=== PATIENT | male | born 1985 | race Caucasian/White ===

== ENCOUNTER 2016-12-16 20:42 | Emergency (ER) | payer OTHER ==
[~2016-12-16] VITALS: Ht 180.3 cm; Wt 81.8 kg
[2016-12-16 20:45] VITALS: BP 163/100; PULSE 92; RESP 12; O2SAT 100
[2016-12-16 21:03] VITALS: BP 168/106; PULSE 88; RESP 11; O2SAT 100
[2016-12-16 21:04] LABS: BASOPHILS % (AUTO) 0 % (0-3); EOSINOPHILS % (AUTO) 18 % (0-5); MONOCYTES % (AUTO) 6 % (4-12); Mean Corpuscular Hemoglobin 31.2 pg (27.0-35.0); Mean Corpuscular Volume 88.8 fL (81-100); NEUTROPHILS % (AUTO) 28 % (40-74); Platelet Count 180 bil/L (150-400)
--- NOTE | 2016-12-16 21:21 | DRSVH ---
PROCEDURE: X-RAY CHEST ONE VIEW, PORTABLE ([id number]) INDICATIONS: 31 year-old male with dizziness. TECHNIQUE: One view of the chest was acquired. COMPARISON: None. FINDINGS: Surgical changes and devices: None. Lungs and pleura: No pleural effusions or pneumothorax. Lungs are clear. Mediastinum: Mediastinal contours appear normal. Heart size is normal. Bones and chest wall: No suspicious bony lesions. Overlying soft tissues appear unremarkable. IMPRESSION: No acute cardiopulmonary disease. Dictated by: Kumar Moran M.D. on 12/16/2016 at 21:19 Approved by: Kumar Moran M.D. on 12/16/2016 at 21:20
--- NOTE | 2016-12-16 21:22 | ED.REPORT ---
HPI-General Illness Date of Service December 16, 2016 ED Provider: Randell Kumar MD 31 year old male with no significant past medical history who presents to the ER due to a sudden onset of SOB, dizziness and substernal chest pain about 30 minutes ago. He also complains of 4 days of epigastric abd cramping which seems to be associated with eating. His abd pain is resolved now. Associated symptoms include shaking, yellow diarrhea (today), burping (with acid taste in mouth), R arm tingling, chills, headache and nausea. Pt denies vomiting, fever, bloody stools. Nursing Notes Stated Complaint: SHORT OF BREATH, DIZZY Chief Complaint: General Complaint Nursing Notes Reviewed: Yes Allergies: Coded Allergies: Penicillins (Verified Allergy, Severe, 12/16/16) cephalexin (Verified Allergy, Severe, 12/16/16) Scheduled PRN Polyethylene Glycol 3350 (Miralax) 17 Gm Powd.pack 17 GM PO HS PRN PRN For Constipation General Time Seen by MD: 21:16 Chief Complaint Breathing problem Hx Obtained From: Patient Arrived By: Walk-in Sudden in Onset?: Yes Onset Occurred: 16 - 30 minutes ago Symptom Duration: Since onset Location: : Chest Severity: Current: Mild Associated with: Reports: Headache, Nausea, Shortness of breath, Denies: Fever, Vomiting Past Medical History Past Medical History Gout Past Surgical History None reported Smoking History Never Smoker Social History Alcohol Use: "Social" Drug Use: Denies drug use Other Social History: Good social support Ambulatory Status Independent Review of Systems Full Review of Systems Constitutional: Reports: Chills, Denies: Fever Respiratory: Reports: Shortness of breath Cardiovascular: Reports: Chest pain GI: Reports: Abdominal pain, Diarrhea, Nausea, Denies: Bloody/tarry stool, Vomiting Neurologic: Reports: Dizziness, Headache, Lightheaded, Shaking Complete sys rev & neg: except as marked. Physical Exam PERC rule negative. Vital Signs Vital Signs Date Time Temp Pulse Resp B/P Pulse Ox O2 Delivery O2 Flow Rate FiO2 12/17/16 00:08 70 14 129/86 99 Room Air 12/16/16 21:46 78 13 142/80 100 Room Air 12/16/16 21:03 88 11 168/106 100 Room Air 12/16/16 20:45 36.5 92 12 163/100 100 Room Air Initial VS: Reviewed General/Constitutional: Well-developed, Well-nourished Head / Eyes: Atraumatic, Normocephalic, PERRL ENT: Conjunctiva normal, No scleral icterus Neck: Full range of motion Respiratory: Breath sounds normal, Clear to auscultation, No respiratory distress Cardiovascular: Regular rate & rhythm, Heart sounds normal (No murmurs), Intact distal pulses Abdomen / GI: Soft, Non-tender, No guarding, No rebound, No distention Back: No CVA tenderness Extremities: Vascular intact, Neuro intact, No swelling, No tenderness Skin: Warm, Dry, No cyanosis Neurologic: Alert, Oriented, Nonfocal Psychiatric: Cognitive function NL, Thought content NL Abnormal Mood/Affect: Positive: Anxious Interpretation & Diagnostics Lab Results Interpretation Result Diagram: 12/16/16204912/16/162049 Test 12/16/16 20:50 White Blood Count 12.7th/mm3 (3.8-10.1) Red Blood Count 5.00mil/mm3 (4.40-5.80) Hemoglobin 15.6g/dL (13.8-17.2) Hematocrit 44.4% (41.0-50.0) Mean Corpuscular Volume 88.8fL (81-100) Mean Corpuscular Hemoglobin 31.2pg (27.0-35.0) Mean Corpuscular Hemoglobin Concent 35.1% (32.0-37.0) Red Cell Distribution Width 12.1% (12.3-15.4) Platelet Count 180bil/L (150-400) Neutrophils (%) (Auto) 28% (40-74) Lymphocytes (%) (Auto) 48% (14-46) Monocytes (%) (Auto) 6% (4-12) Eosinophils (%) (Auto) 18% (0-5) Basophils (%) (Auto) 0% (0-3) Sodium Level 141mEq/L (134-144) Potassium Level 3.1mEq/L (3.5-5.2) Chloride Level 99mEq/L (97-108) Carbon Dioxide Level 23mmol/L (18-29) Blood Urea Nitrogen 10mg/dL (6-20) Creatinine 0.94mg/dL (0.76-1.27) Estimat Glomerular Filtration Rate 100mL/min (>59) Glucose Level 115mg/dL (60-99) Calcium Level 10.1mg/dL (8.5-10.1) Magnesium Level 1.7mg/dL (1.6-2.6) Total Bilirubin 0.5mg/dL (0.0-1.2) Aspartate Amino Transf (AST/SGOT) 23U/L (0-50) Alanine Aminotransferase (ALT/SGPT) 22U/L (0-44) Alkaline Phosphatase 72U/L (25-150) Troponin T 0.010ug/L (0.0-0.011) Total Protein 7.8g/dL (6.4-8.4) Albumin 4.6g/dL (3.4-5.0) Lipase 29U/L (13-60) Hold Dow Top Tube Received (Received) Lab Results Interpretation: US Appendix: Noncompressible bowel loop or phlegmonous mass measures 2 x2 x 5 cm, and is of uncertain etiology. The appendix is not definitely seen, though acute appendicitis is not excluded on this exam. ECG Interpretation Time: 20:54 Interpreted by: ED physician Rhythm / Conduction: Tachycardia (rate 103) X-Ray Chest Interpretation Chest Xray Interpretation: IMPRESSION: No acute cardiopulmonary disease. Dictated by: Kumar Moran M.D. on 12/16/2016 at 21:19 View: Portable, 1 view Interpretation / Wet Read by: Interpret - Radiologist CT Abd / Pelvis Interpretation Severe fecal loading of the colon. Normal appendix. Study type: Abdominal CT IV contrast Interpretation / Wet Read by: Interpret - Radiologist Re-Eval/Medical Decision Med Decision/Clinical Course 31-year-old male with abdominal pain times several days. It is worse after eating. On arrival he had no pain. He then reported right lower quadrant pain and was tender at McBurney's point. Ultrasound is equivocal. CT scan no evidence of appendicitis. His labs are stable. He also reported feeling short of breath prior to arrival. He felt very anxious and does not like hospitals. On exam he was quite anxious. Troponins are negative. He is perc negative. Chest shows clear. Patient felt much better after waiting in our ER. He declined any anti-anxiety medications. His CT scan consistent with constipation. Suspect his dyspnea due to anxiety. Discharged home after discussion with patient and his girlfriend with [employer] and return precautions if new or worsening chest pain radiating or any other new or worsening symptoms. Time of Eval: 22:36 Re-Evaluation/Progress Note: No abd pain currently. Pt denies any recent fevers. He is much calmer. Pt updated of imaging and discussion with surgeon. Pt understands and agrees with plan for abd CT. Time of Eval: 00:00 Re-Evaluation/Progress Note: Updated pt of labs, ECG and imaging results. Discussed plan for discharge and follow up. All questions addressed. Consultation : Referral / Consult Name: Neil Sy MD Consulted With: Surgeon Call Returned at: 22:34 Note: Recommends CT. Counseled Regarding: Diagnosis, Lab results, Need for follow-up, When/why to return to ED Discharge & Departure Primary Impression: Constipation Constipation type: unspecified constipation type Qualified Code: K59.00 - Constipation, unspecified Additional Impression: Chest pain Disposition: Home Discharge Condition All VS Reviewed: Yes Condition: Stable Patient Instructions: Chest Pain (ED), Constipation (ED) Additional Instructions: You can take Miralax as needed for constipation. Return to the ER for severe abdominal pain, vomiting, fever, unable to stool, chest pain, difficulty breathing or any other concerning symptoms. Your chest pain workup was reassuring. You did not have a heart attack. Follow up with your PCP tomorrow. Referrals: Aubrey Hartley MD (PCP) Scribe Attestation Portions of this note were transcribed by Yamile Joy. I, (Dr. Randell Allred) personally performed the history, physical exam and medical decision- making; I reviewed and confirmed the accuracy of the information in the transcribed note. Signed by: Yamile Joy. María, 12/16/2016, [id number] copies to: Aubrey Hartley MD, Ben M MD December 16, 2016 21:22 Yamile Joy December 16, 2016 21:30
[2016-12-16 21:23] LABS: TROPONIN T 0.01 ug/L (0.0-0.011)
[2016-12-16 21:34] LABS: Magnesium 1.7 mg/dL (1.6-2.6)
[2016-12-16] MEDS ORDERED: 0.9% Sodium Chloride 1,000 ML IV ONE (21:34)
[2016-12-16] MEDS ORDERED: Ondansetron 2 mg/mL 2 mL Inj IVPUSH PRN (21:35)
[2016-12-16 21:46] VITALS: BP 142/80; PULSE 78; RESP 13; O2SAT 100
[2016-12-16] MEDS ORDERED: POLY17PO6 PO (23:46)
[2016-12-17 00:08] VITALS: BP 129/86; PULSE 70; RESP 14; O2SAT 99
--- NOTE | 2016-12-17 07:25 | DRSVH ---
PROCEDURE: CT ABDOMEN AND PELVIS WITH CONTRAST ([id number]) INDICATIONS: RLQ pain TECHNIQUE: After the administration of intravenous contrast, 5 mm thick sections acquired from the diaphragm to the symphysis. 5 mm coronal and sagittal reformats were acquired. For radiation dose reduction, the following was used: automated exposure control, adjustment of mA and/or kV according to patient siz e. COMPARISON: None. FINDINGS: Image quality: Excellent. ABDOMEN: Lung bases: Lung bases are clear. Heart size is normal. Solid organs: Liver and spleen are normal in size and enhancement. Gallbladder is normal. Biliary system is non dilated. Pancreas enhances normally. No adrenal nodules. Kidneys demonstrate normal size and enhancement, without hydronephrosis. Peritoneum and bowel: Bowel loops demonstrate normal wall thickness and caliber. No free fluid or a ir. Nodes and vessels: No retroperitoneal or mesenteric adenopathy by size criteria. Aorta and inferior vena cava are normal in size. Miscellaneous: No ventral hernias. PELVIS: Genitourinary: Bladder wall thickness is normal. Miscellaneous: No inguinal hernias or adenopathy. Bones: No suspicious bony lesions. No vertebral body compression fractures. Bilateral L5 spondylol ysis minimal anterior spondylolisthesis. IMPRESSION: Normal abdomen and pelvis CT. Specifically, the appendix is normal. Bilateral L5 spondylolysis with minimal anterior spondylolisthesis. There are no discrepancy with the pulmonary report. Dictated by: Kolby Mejía M.D. on 12/17/2016 at 7:23 Approved by: Kolby Mejía M.D. on 12/17/2016 at 7:24
--- NOTE | 2016-12-17 07:45 | DRSVH ---
PROCEDURE: US APPENDIX INDICATIONS: RLQ pain r/o appy TECHNIQUE: Real-time focused scanning was performed of the abdomen with attention to the appendix, with image do cumentation. COMPARISON: None. FINDINGS: Appendix visualization: The appendix is nonvisualized. Possible 4.7 x 2.3 x 2.2 cm right lower quadrant noncompressible mass identified. Associated findings: Echogenic fat: Absent Appendicoliths: Absent Nearby free fluid: Absent Lymphadenopathy: Absent Tenderness on exam: Present IMPRESSION: Possible mass on ultrasound was subsequently only shown on CT to represent normal enteric material. Subsequent CT demonstrated a normal appendix. Dictated by: Kolby Mejía M.D. on 12/17/2016 at 7:40 Approved by: Kolby Mejía M.D. on 12/17/2016 at 7:43
== END 2016-12-17 00:11 | disposition home or self-care (01) ==
LOC: SED 20:42
DX: K59.00 Constipation, unspecified (principal); R07.9 Chest pain, unspecified; Z88.0 Allergy status to penicillin; Z88.1 Allergy status to other antibiotic agents
CPT/HCPCS: 36415; 71010; 74177; 76705; 80053; 83690; 83735; 84484; 85025; 93005; 96360; 99285; J7030; Q9967